=== PATIENT | male | born 1945 | race Caucasian/White ===

== ENCOUNTER → 2019-02-07 07:47 | Outpatient (CLI) | payer OTHER, SELFPAY ==
[2019-02-07 10:04] LABS: Prostate Specific Antigen 1.42 ng/mL (0.10-4.00)
== END ==
PROVIDERS: PCP Family Medicine; Visit Provider Specialist
DX: N40.1 Benign prostatic hyperplasia with lower urinary tract symptoms (principal)
CPT/HCPCS: 36415; 84153

== ENCOUNTER → 2019-03-16 10:26 | Outpatient (CLI) | payer MEDICARE, SELFPAY | PROVIDERS: PCP Family Medicine; Visit Provider Orthopaedic Surgery | DX: M75.52 Bursitis of left shoulder (principal); Z53.9 Procedure and treatment not carried out, unspecified reason ==

== ENCOUNTER → 2019-03-29 12:24 | Outpatient (CLI) | payer OTHER, MEDICARE, SELFPAY ==
--- NOTE | 2019-03-29 | DI.MRI.S_ITS ---
PROCEDURE: MR SHOULDER LT WO CON INDICATIONS: Bursitis of left shoulder TECHNIQUE: Noncontrast oblique coronal T2 fast spin echo with fat saturation, oblique sagittal T1 spin echo and T2 fast spin echo with fat saturation, axial T1 spin echo and T2 fast spin echo with fat saturation through the shoulder. COMPARISON: None. FINDINGS: Image quality: Excellent. Rotator cuff: There is full-thickness rupture involving anterior to mid fibers of the distal supraspinatus at its insertion on humeral head with 1.3 cm medial retraction of torn tendon fibers and fluid filled gap measures 1.3 cm in AP dimension. Tendinosis and low to moderate grade articular surface partial thickness tear involving the posterior fibers of distal supraspinatus and distal infraspinatus are seen extending to the musculotendinous junction. Most anterior fibers of distal supraspinatus also shows tendinosis and low-grade articular surface partial-thickness tear. Sagittal images demonstrate moderate supraspinatus muscle atrophy. Bones and bursae: No bone marrow contusions or fractures. There is moderate cromioclavicular joint osteoarthritis. No fracture or dislocation. Mild to moderate glenohumeral joint osteoarthritis is seen. Small to moderate amount of subacromial subdeltoid bursal fluid and glenohumeral joint fluid is seen. Capsule and soft tissues: In the absence of intra-articular contrast, the labrum and glenohumeral ligaments appear intact. Tendinosis and low to moderate grade partial-thickness involving proximal intra-articular portion of the head biceps tendon near humeral head is seen. The rotator interval appears normal, without fibrosis. The coracohumeral ligament is normal in thickness. IMPRESSION: 1. Full-thickness rupture involving anterior to mid fibers of distal supraspinatus at its insertion the humeral head with 1.3 cm medial retraction of torn tendon fibers. Tendinosis and moderate grade articular surface partial thickness tear involving most anterior fibers of distal supraspinatus, posterior fibers of distal supraspinatus, and infraspinatus. Distal subscapularis tendinosis. Moderate supraspinatus muscle atrophy. 2. Mild to moderate acromioclavicular joint and glenohumeral joint osteoarthritis. 3. No gross focal labral tear. 4. Tendinosis and partial-thickness tear involving proximal intra-articular portion of the lateral head of biceps tendon near humeral head. Dictated by: Guevara Rubio M.D. on 03/29/2019 at 13:15 Approved by: Guevara Rubio M.D. on 03/29/2019 at 13:28
== END ==
PROVIDERS: PCP Family Medicine; Visit Provider Orthopaedic Surgery
DX: M75.52 Bursitis of left shoulder (principal); M75.122 Complete rotator cuff tear or rupture of left shoulder, not specified as traumatic; S46.112A Strain of muscle, fascia and tendon of long head of biceps, left arm, initial encounter; M19.012 Primary osteoarthritis, left shoulder
CPT/HCPCS: 73221

== ENCOUNTER → 2019-05-09 12:19 | Outpatient (CLI) | payer OTHER, SELFPAY ==
[2019-05-09 13:27] LABS: Add Manual Diff / Slide Review NO; Basophils Absolute Auto 0 /uL (0-100); Basophils Percent Auto 0.4 % (0-2); Eosinophils Absolute Auto 100 /uL (0-450); Eosinophils Percent Auto 1.8 % (2-4); Hematocrit 45.8 % (41-53); Hemoglobin 15.5 g/dL (13.5-17.5); Lymphocytes Absolute Auto 1100 /uL (1100-4500); Lymphocytes Percent Auto 19.2 % (25-40); Mean Corpuscular HGB Conc 33.8 % (30-36); Mean Corpuscular Hemoglobin 33.2 PG (26-34); Mean Corpuscular Volume 98.2 fL (80-100); Monocytes Absolute Auto 600 /uL (0-900); Monocytes Percent Auto 10.5 % (3-14); Neutrophils Absolute Auto 4000 /uL (1500-7000); Neutrophils Percent Auto 68.1 % (50-75); Platelet Count 254 X10^3/uL (150-400); Red Blood Cell Count 4.67 X10^6/uL (4.5-5.9); Red Cell Distribution Width 14.1 % (11.6-14.8); White Blood Cell Count 5.9 X10^3/uL (4.5-11.0)
[2019-05-09 13:49] LABS: Blood Urea Nitrogen 25 mg/dL (9-20); Calcium 9.4 mg/dL (8.4-10.2); Carbon Dioxide 32 mmol/L (22-32); Chloride 101 mmol/L (98-107); Cholesterol 200 mg/dL (140-199); Estimated Glomerular Filt Rate > 60.0 mL/min (>60); Glucose 107 mg/dL (80-110); HDL Cholesterol 60 mg/dL (40-60); HEMOLYSIS < 15 (0-50); LDL Cholesterol Calculated 125 mg/dL (<100); Potassium 5.3 mmol/L (3.4-5.1); Sodium 139 mmol/L (137-145); Triglycerides 76 mg/dL (35-150)
== END ==
PROVIDERS: Family Provider Family Medicine; PCP Family Medicine; Visit Provider Internal Medicine Cardiovascular Disease
DX: I48.3 Typical atrial flutter (principal); Z00.00 Encounter for general adult medical examination without abnormal findings
CPT/HCPCS: 36415; 80048; 80061; 85025

== ENCOUNTER → 2019-06-13 07:37 | Outpatient (CLI) | payer OTHER, BC, SELFPAY ==
--- NOTE | 2019-06-13 | DI.NM.S_ITS ---
PROCEDURE: NM KEARA PERF SPECT REST & STR Rest and exercise myocardial perfusion SPECT with gated imaging and ejection fraction RADIOPHARMACEUTICAL: 27.3 mCi Tc-99m sestamibi IV at rest and 26.7 mCi Tc-99m sestamibi IV at peak exercise. A two day-protocol was performed. INDICATIONS: Typical atrial flutter TECHNIQUE: Radiopharmaceutical was injected at peak stress test, and also at rest. SPECT images were obtained. SPECT myocardial perfusion images were displayed in short axis, horizontal long axis, and vertical long axis views. Gated images were reviewed using Villij software. COMPARISON: None. CARDIAC STRESS: A standard Wojciech treadmill exercise tolerance test was performed by the patient under the supervision of an attending staff. The patient exercised for 2 minutes and 43 seconds reaching 4.6 METs; functional aerobic impairment (PREMA) is +50% on sedentary scale. Hemodynamic data: There is normal blood pressure and heart rate response to exercise stress. Patient achieved 94% of maximum predicted heart rate at peak exercise. Symptoms: Patient denied chest pain during exercise. EKG: Resting ECG shows sinus rhythm. No diagnostic EKG changes of ischemia with exercise. Frequent PVCs during recovery. FINDINGS: Raw data: There is good myocardial labeling by radiotracer. No significant motion artifacts. [id number] ratio is 0.36 (normal is less than 0.38 for sestamibi tracer, and less than 0.50 for thallium tracer). Left ventricle function: Gated images demonstrate normal left ventricle wall thickening. No segmental wall motion abnormality. No transient ischemic dilation; TID is 0.9 (normal less than 1.3). The left ventricle resting end-diastolic volume is 156 mL. Left ventricle stress ejection fraction is 69%; normal values are above 45%. Myocardial perfusion: There is a moderately severely fixed inferior wall defect extending to the apex that essentially resolves with prone imaging suggesting diaphragmatic attentuation. No ischemia no infarction. IMPRESSION: Low risk, normal treadmill nuclear stress test from ischemia standpoint. 1) No perfusion evidence of ischemia or infarction. There is a moderately severely fixed inferior wall defect extending to the apex that essentially resolves with prone imaging suggesting diaphragmatic attentuation. 2) Mildly increased left ventricular size (EDV 156cc) with normal wall motion and normal sysotlic function (EF post stress 69%. 3) No ECG evidence of ischemia. 4) Frequent PVCs during recovery. 5) No angina during the study. 6) Severely reduced exercise tolerance (4.6 METs, PREMA +50% on sedentary scale). Target heart rate achieved. Appropriate BP response to exercise. 7) No prior nuclear stress test available for comparison. Dictated by: Mathew More MD on 06/14/2019 at 12:42 Approved by: Mathew More MD on 06/14/2019 at 12:47
--- NOTE | 2019-06-13 09:15 | PM.TREADMILL ---
Cardiac Stress Test Report Referral & Results Date Patient Seen: 06/13/19 Requesting provider: Mathew More Indication: Atrial flutter Rest ECG: Unremarkable Procedure Note: Today following both written and verbal informed consent the patient was exercised according to a standard Wojciech protocol patient went for a total of 2 minutes 43 seconds achieving a maximum heart rate of 136 maximum systolic blood pressure of 182. This is approximately 4.6 METS. Exercise was terminated at this point because of severe dyspnea. Patient was also given Cardiolite through a previously started Hep-Lock IV by the diagnostic imaging staff approximately 1 minute prior to the cessation of exercise. There are no ST-T segment changes identified Normal heart rate and blood pressure response although quickly hypertensive but quickly returned to normal in recovery Occasional PVC including very brief runs of ventricular bigeminy in recovery Functional aerobic impairment rates 50% on the sedentary scale Impression: Severely limited exercise capacity No evidence of ischemia Dyspnea out of proportion to exertion otherwise although patient clearly is obese with significant deconditioning present Please see perfusion imaging report as well Please note: Actual ECG tracings can be found in the PACS system.
== END ==
PROVIDERS: Family Provider Family Medicine; PCP Family Medicine; Visit Provider Internal Medicine Cardiovascular Disease
DX: I48.3 Typical atrial flutter (principal)
CPT/HCPCS: 78452; 93016; 93017; 93018; A9502

== ENCOUNTER → 2020-10-24 11:45 | Outpatient (CLI) | payer OTHER, SELFPAY ==
[2020-10-24 12:21] LABS: Add Manual Diff / Slide Review NO; Basophils Absolute Auto 0 /uL (0-100); Basophils Percent Auto 0.5 % (0-2); Eosinophils Absolute Auto 300 /uL (0-450); Eosinophils Percent Auto 4.1 % (2-4); Hematocrit 45.7 % (41-53); Hemoglobin 15.6 g/dL (13.5-17.5); Lymphocytes Absolute Auto 1600 /uL (1100-4500); Lymphocytes Percent Auto 25.6 % (25-40); Mean Corpuscular HGB Conc 34.1 % (30-36); Mean Corpuscular Hemoglobin 33.1 PG (26-34); Mean Corpuscular Volume 97.1 fL (80-100); Monocytes Absolute Auto 700 /uL (0-900); Monocytes Percent Auto 10.9 % (3-14); Neutrophils Absolute Auto 3600 /uL (1500-7000); Neutrophils Percent Auto 58.9 % (50-75); Platelet Count 246 X10^3/uL (150-400); Red Cell Distribution Width 13.6 % (11.6-14.8); White Blood Cell Count 6.2 X10^3/uL (4.5-11.0)
[2020-10-24 13:00] LABS: BUN Creatinine Ratio 19.4 (6-22); Blood Urea Nitrogen 19 mg/dL (9-20); Calcium 8.9 mg/dL (8.4-10.2); Carbon Dioxide 33 mmol/L (22-32); Chloride 102 mmol/L (98-107); Cholesterol 193 mg/dL (140-199); Estimated Glomerular Filt Rate > 60.0 mL/min (>60); Glucose 106 mg/dL (80-110); HDL Cholesterol 39 mg/dL (40-60); HEMOLYSIS < 15 (0-50); LDL Cholesterol Calculated 114 mg/dL (<100); Potassium 4.6 mmol/L (3.4-5.1); Sodium 139 mmol/L (137-145); Triglycerides 201 mg/dL (35-150)
== END ==
PROVIDERS: Family Provider Family Medicine; PCP Family Medicine; Referring Provider Internal Medicine Cardiovascular Disease; Visit Provider Internal Medicine Cardiovascular Disease
DX: E78.5 Hyperlipidemia, unspecified (principal); I48.0 Paroxysmal atrial fibrillation
CPT/HCPCS: 36415; 80048; 80061; 85025

== ENCOUNTER 2022-02-09 11:51 | Emergency (ER) | payer OTHER, MEDICARE, SELFPAY ==
[2022-02-09 12:00] VITALS: BP 192/99; PULSE 80; RESP 16; TEMP 37; O2SAT 98; BMI 38.7
--- NOTE | 2022-02-09 14:15 | ED_ITS ---
HPI - Back Pain/Injury General Chief Complaint: Back Pain/Injury Stated Complaint: Lower back pain [id number] Time Seen by Provider: 02/09/22 14:15 History of Present Illness HPI Narrative: Patient is a 76-year-old male with history of hyperlipidemia atrial fibrillation on Eliquis, osteoarthritis presenting today with left sided lower lumbar pain ongoing for the last 2 weeks. He denies any specific injury or event. It is pinpoint. It is worse when he 1st stands up and sits down. It is nonradiating. It does not go down his legs. He goes to the chiropractor he says it helped initially but then started hurting again. He denies any changes in bowel or bladder habits. He has been taking Tylenol for pain which is no longer helping. He has tried heat and ice also not helping. Related Data Home Medications Medication Instructions Recorded Confirmed Fish Oil 1,000 mg PO QDAY #0 05/21/11 10/03/18 amiodarone 200 mg tablet 200 mg PO DAILY 12/25/20 12/25/20 apixaban 5 mg tablet (Eliquis) 5 mg PO BID 12/25/20 12/25/20 atorvastatin 10 mg tablet 10 mg PO DAILY 12/25/20 12/25/20 metoprolol succinate 100 mg 100 mg PO DAILY 12/25/20 12/25/20 tablet,extended release 24 hr trazodone 50 mg tablet 50 mg PO BEDTIME PRN tab 12/25/20 12/25/20 Previous Rx's Medication Instructions Recorded omeprazole 20 mg capsule,delayed 20 mg PO QDAY #90 cap 06/03/17 release albuterol sulfate 90 mcg/actuation 1 inh INHALATION Q4-6H PRN #18 gram 10/03/18 aerosol inhaler cyclobenzaprine 5 mg tablet 5 mg PO TID PRN #10 tab 02/09/22 hydrocodone 5 mg-acetaminophen 325 1 tab PO Q6H PRN #10 tab 02/09/22 mg tablet Allergies Allergy/AdvReac Type Severity Reaction Status Date / Time No Known Drug Allergies Allergy Unverified 02/09/22 12:02 Review of Systems Review of Systems Narrative: GENERAL: Denies chills, fatigue, malaise, fever, sweats, travel HEENT: Denies sinus pain, ear pain, sore throat, difficulty swallowing, neck pain RESPIRATORY: Denies dyspnea, cough, wheezing, hemoptysis, sputum. CARDIOVASCULAR: Denies chest pain, palpitations, orthopnea, edema GASTROINTESTINAL: Denies nausea, vomiting, abdominal pain, diarrhea, constipation, melena. : Denies dysuria, frequency, incontinence, hematuria, urinary retention, flank pain. MUSCULOSKELETAL: See HPI SKIN: No rash, no erythema, no pruritus NEUROLOGIC: Denies weakness, dizziness, headache, numbness, change in speech, confusion PSYCHIATRIC: No concerning psychosocial issues. 12 point review of systems is negative except for those stated above and HPI Patient History Social History Smoking Status: Never smoker Smoking Status: Never smoker alcohol intake frequency: 0-2 drinks per day Substance Use Type: does not use Exam Initial Vital Signs Initial Vital Signs: Vital Signs Temperature 98.6 F 02/09/22 12:00 Pulse Rate 80 02/09/22 12:00 Respiratory Rate 16 02/09/22 12:00 Blood Pressure 192/99 H 02/09/22 12:00 Pulse Oximetry 98 02/09/22 12:00 GENERAL: Alert well-appearing 76-year-old male sitting in chair appears comfortable CARDIOVASCULAR: peripheral pulses in tact, cap refill <2 sec RESPIRATORY: No respiratory distress, speaks in full sentences without difficulty BACK: No midline tenderness pinpoint tenderness in the left lumbar area. Pain is reproducible with palpation. EXTREMITIES: Normal range of motion, no clubbing or edema. Neurovascularly intact NEUROLOGICAL: Cranial nerves II through XII grossly intact. Normal gait and speech. Sensation in lower extremities equal and intact. SKIN: Warm, dry, no petechiae, no rashes or lesions. Course Vital Signs Vital signs: Vital Signs - 8 hr 02/09/22 12:00 02/09/22 14:39 Temperature 98.6 F Pulse Rate 80 66 Respiratory Rate 16 19 Blood Pressure 192/99 H 149/80 H Pulse Oximetry 98 97 MDM - Back Pain/Injury MDM Narrative Medical decision making narrative: At this time no indication for imaging, however may require imaging if symptoms worsen. He is hypertensive however pain is reproducible with palpation it is pinpoint it is nonradiating in the for the last 2 weeks. This is unlikely a dissection. Blood pressure is also improved with time in the emergency department. Discharge Plan Departure Patient Disposition: Home Clinical Impression: Low back pain Instructions: DI for Low Back Pain Activity Restrictions/Additional Instructions: *You have been diagnosed with low back pain *What to do: At this time I do recommend light stretching and heating pad. You may need physical therapy as well. I recommend massage if possible. *Continue to take medications as directed--> SENT TO [facility] [place] 1 tablet every 6 hours if needed for severe pain Flexeril 5 mg every 8 hours if needed for muscle spasm *Follow up with your primary care provider in 2-3 days or call [phone] *Return to ER if you should have increasing pain, leg weakness, chest pain, loss of urine or stool or any new, worsening or concerning symptoms CONTROLLED SUBSTANCE DISCHARGE (Narcotoic/benzodiazepine/Flexeril/Phenergan) 1. You have been prescribed narcotic medications, it does have acetaminophen/Tylenol/paracetamol in it, DO NOT TAKE MORE THAN 4,00mg in 24 hours of Tylenol. TRAMADOL DOES NOT CONTAIN TYLENOL 2. Please understand that we cannot provide further refills of narcotics, benzodiazepines or controlled substances through the ED and her pain management will need to be through your provider. 3. While on these medications you cannot drive or operate heavy machinery. 4. You cannot sign legal documents or perform any duties such as this. 5. As long as you're taking opiate pain medications he should also be taking a stool softener such as Colace, Dulcolax, MiraLAX or prune juice, to help avoid constipation. Prescriptions: New hydrocodone-acetaminophen 5-325 mg tablet 1 tab PO Q6H PRN (Reason: pain) Qty: 10 0RF cyclobenzaprine 5 mg tablet 5 mg PO TID PRN (Reason: muscle spasm) Qty: 10 0RF No Action albuterol sulfate 90 mcg/actuation HFA aerosol inhaler 1 inh INHALATION Q4-6H PRN (Reason: shortness of breath) Qty: 18 0RF Fish Oil 1,000 mg PO QDAY Qty: 0 0RF omeprazole 20 MG capsule,delayed release(DR/EC) 20 mg PO QDAY Qty: 90 0RF metoprolol succinate 100 mg tablet extended release 24 hr 100 mg PO DAILY 0RF amiodarone 200 mg tablet 200 mg PO DAILY 0RF Eliquis 5 mg tablet 5 mg PO BID 0RF atorvastatin 10 mg tablet 10 mg PO DAILY 0RF trazodone 50 mg tablet 50 mg PO BEDTIME [id number] Referrals: Brayan Truong MD [Primary Care Provider] -
[2022-02-09 14:39] VITALS: BP 149/80; PULSE 66; RESP 19; O2SAT 97
== END 2022-02-09 14:42 | disposition home or self-care (01) ==
PROVIDERS: Emergency Provider Emergency Medicine; Family Provider Family Medicine; PCP Family Medicine
DX: M54.50 Low back pain, unspecified (principal)
CPT/HCPCS: 99281

== ENCOUNTER → 2022-07-28 14:32 | Outpatient (CLI) | payer MEDICARE, SELFPAY ==
[2022-07-28 16:41] LABS: Add Manual Diff / Slide Review NO; Basophils Absolute Auto 0 /uL (0-100); Basophils Percent Auto 0.7 % (0-2); Eosinophils Absolute Auto 200 /uL (0-450); Eosinophils Percent Auto 3.6 % (2-4); Hematocrit 45.1 % (41-53); Hemoglobin 15.3 g/dL (13.5-17.5); Lymphocytes Absolute Auto 1200 /uL (1100-4500); Lymphocytes Percent Auto 24.2 % (25-40); Mean Corpuscular HGB Conc 33.8 % (30-36); Mean Corpuscular Hemoglobin 33.4 PG (26-34); Mean Corpuscular Volume 98.6 fL (80-100); Monocytes Absolute Auto 700 /uL (0-900); Monocytes Percent Auto 12.8 % (3-14); Neutrophils Absolute Auto 3000 /uL (1500-7000); Neutrophils Percent Auto 58.7 % (50-75); Platelet Count 241 X10^3/uL (150-400); Red Blood Cell Count 4.57 X10^6/uL (4.5-5.9); Red Cell Distribution Width 13.5 % (11.6-14.8); White Blood Cell Count 5.1 X10^3/uL (4.5-11.0)
[2022-07-28 17:02] LABS: BUN Creatinine Ratio 18.8 (6-22); Blood Urea Nitrogen 19 mg/dL (9-20); Calcium 8.6 mg/dL (8.4-10.2); Carbon Dioxide 27 mmol/L (22-32); Chloride 105 mmol/L (98-107); Estimated Glomerular Filt Rate > 60 mL/min (>60); Glucose 94 mg/dL (80-110); HEMOLYSIS 27 (0-50); Potassium 4.5 mmol/L (3.4-5.1); Sodium 140 mmol/L (137-145)
[2022-07-28 22:23] LABS: Free T4, Direct Thyroxine 1.09 ng/dL (0.78-2.19)
== END ==
PROVIDERS: Family Provider Family Medicine; PCP Family Medicine; Referring Provider Internal Medicine Cardiovascular Disease; Visit Provider Internal Medicine Cardiovascular Disease
DX: I48.0 Paroxysmal atrial fibrillation (principal)
CPT/HCPCS: 36415; 80048; 84439; 84443; 85025

== ENCOUNTER → 2022-11-19 14:43 | Outpatient (CLI) | payer MEDICARE, SELFPAY ==
[2022-11-19 15:07] LABS: Add Manual Diff / Slide Review NO; Basophils Absolute Auto 0 /uL (0-100); Basophils Percent Auto 0.7 % (0-2); Eosinophils Absolute Auto 400 /uL (0-450); Eosinophils Percent Auto 5.8 % (2-4); Hematocrit 44.6 % (41-53); Hemoglobin 15.3 g/dL (13.5-17.5); Lymphocytes Absolute Auto 1500 /uL (1100-4500); Lymphocytes Percent Auto 22.2 % (25-40); Mean Corpuscular HGB Conc 34.2 % (30-36); Mean Corpuscular Hemoglobin 32.9 PG (26-34); Mean Corpuscular Volume 96.3 fL (80-100); Monocytes Absolute Auto 600 /uL (0-900); Monocytes Percent Auto 9.4 % (3-14); Neutrophils Absolute Auto 4100 /uL (1500-7000); Neutrophils Percent Auto 61.9 % (50-75); Platelet Count 224 X10^3/uL (150-400); Red Blood Cell Count 4.64 X10^6/uL (4.5-5.9); Red Cell Distribution Width 13.8 % (11.6-14.8); White Blood Cell Count 6.6 X10^3/uL (4.5-11.0)
[2022-11-19 15:16] LABS: Hemoglobin A1C% w Est Avg Glu 5.5 % (4.0-6.0)
[2022-11-19 15:18] LABS: Appearance Urine UA CLEAR; Bilirubin Urine UA 1+ (NEGATIVE); Color Urine UA YELLOW; Glucose Urine UA NEGATIVE (Negative); Ketones Urine UA 1+ (NEGATIVE); Leukocyte Esterase Urine UA NEGATIVE (NEGATIVE); Nitrite Urine UA NEGATIVE (Negative); Occult Blood Urine UA NEGATIVE (Negative); Protein Urine UA NEGATIVE (Negative); Specific Gravity Urine UA >=1.030 (1.000-1.035)
[2022-11-19 15:37] LABS: Erythrocyte Sedimentation Rate 12 MM/HR (0-15)
[2022-11-19 15:50] LABS: Bacteria Urine None Seen; Culture Indicated Urine Cult Not Indicated; Ictotest Urine Negative (Negative); RBC Urine None Seen (0-5/HPF); Squamous Epithelial Cell Urine 1-5 /HPF (0-5/HPF); WBC Urine None Seen (0-5/HPF)
[2022-11-19 17:24] LABS: BUN Creatinine Ratio 18.9 (6-22); Blood Urea Nitrogen 21 mg/dL (9-20); Calcium 8.8 mg/dL (8.4-10.2); Carbon Dioxide 25 mmol/L (22-32); Chloride 104 mmol/L (98-107); Estimated Glomerular Filt Rate > 60 mL/min (>60); Glucose 105 mg/dL (80-110); HEMOLYSIS 17 (0-50); Potassium 4.8 mmol/L (3.4-5.1); Sodium 138 mmol/L (137-145)
[2022-11-19 20:21] LABS: C-Reactive Protein Quant 0.8 mg/dL (<1.0)
== END ==
PROVIDERS: Family Provider Family Medicine; PCP Family Medicine; Referring Provider Orthopaedic Surgery; Visit Provider Orthopaedic Surgery
DX: Z01.818 Encounter for other preprocedural examination (principal); R73.9 Hyperglycemia, unspecified; Z01.812 Encounter for preprocedural laboratory examination; N39.0 Urinary tract infection, site not specified
CPT/HCPCS: 36415; 80048; 81001; 83036; 85025; 85651; 86140; 93005

== ENCOUNTER → 2023-07-21 12:44 | Outpatient (CLI) | payer MEDICARE, SELFPAY ==
[2023-07-21 14:33] LABS: Add Manual Diff / Slide Review NO; Basophils Absolute Auto 0 /uL (0-100); Basophils Percent Auto 0.7 % (0-2); Eosinophils Absolute Auto 100 /uL (0-450); Eosinophils Percent Auto 4.1 % (2-4); Hematocrit 44.8 % (41-53); Hemoglobin 15.1 g/dL (13.5-17.5); Lymphocytes Absolute Auto 1200 /uL (1100-4500); Lymphocytes Percent Auto 32.2 % (25-40); Mean Corpuscular HGB Conc 33.7 % (30-36); Mean Corpuscular Hemoglobin 33.4 PG (26-34); Mean Corpuscular Volume 99.2 fL (80-100); Monocytes Absolute Auto 600 /uL (0-900); Monocytes Percent Auto 16.3 % (3-14); Neutrophils Absolute Auto 1700 /uL (1500-7000); Neutrophils Percent Auto 46.7 % (50-75); Platelet Count 218 X10^3/uL (150-400); Red Blood Cell Count 4.52 X10^6/uL (4.5-5.9); Red Cell Distribution Width 14.1 % (11.6-14.8); White Blood Cell Count 3.6 X10^3/uL (4.5-11.0)
[2023-07-21 14:49] LABS: BUN Creatinine Ratio 17.3 (6-22); Blood Urea Nitrogen 19 mg/dL (9-20); Calcium 9.1 mg/dL (8.4-10.2); Carbon Dioxide 31 mmol/L (22-32); Chloride 99 mmol/L (98-107); Cholesterol 161 mg/dL (140-199); Estimated Glomerular Filt Rate > 60 mL/min (>60); Glucose 98 mg/dL (80-110); HDL Cholesterol 35 mg/dL (40-60); HEMOLYSIS < 15 (0-50); LDL Cholesterol Calculated 102 mg/dL (<100); Potassium 4.4 mmol/L (3.4-5.1); Sodium 138 mmol/L (137-145); Triglycerides 119 mg/dL (35-150)
[2023-07-21 15:21] LABS: TSH w/ Reflex to FT4 2.73 uIU/mL (0.47-4.68)
== END ==
PROVIDERS: Family Provider Family Medicine; PCP Family Medicine; Referring Provider Internal Medicine Cardiovascular Disease; Visit Provider Internal Medicine Cardiovascular Disease
DX: E78.5 Hyperlipidemia, unspecified (principal); I48.0 Paroxysmal atrial fibrillation; Z79.899 Other long term (current) drug therapy
CPT/HCPCS: 36415; 80048; 80061; 84443; 85025

== ENCOUNTER → 2025-02-12 08:54 | Outpatient (CLI) | payer MEDICARE, SELFPAY ==
--- NOTE | 2025-02-12 08:57 | DI.CT.S_ITS ---
PROCEDURE: CT CHEST WO CON INDICATIONS: Dyspnea, h/o chemical exposure, eval for ILD TECHNIQUE: Noncontrast 5 mm thick sections acquired from the pulmonary apices to the posterior costophrenic angles. 1 mm lung window, 5 mm thick coronal and sagittal and 7 mm axial MIP reformats were then acquired. For radiation dose reduction, the following was used: automated exposure control, adjustment of mA and/or kV according to patient size. COMPARISON: [facility], CT, CT ANGIO CHEST, 02/24/2024, 9:26. FINDINGS: Image quality: Diagnostic. Lower Neck: No enlarged lymph nodes. Thyroid: No thyroid nodules which require sonographic follow up, per consensus guidelines. Axillae: No enlarged lymph nodes. Chest Wall: Unremarkable. Bones: Degenerative disc and endplate changes in the thoracic spine. Lungs and Pleura: Central and peripheral airways are normal without bronchial wall thickening or bronchiectasis. No nodule, mass, ground-glass opacity, or consolidation coarse calcification in the posterior left upper lobe. Scattered punctate calcifications elsewhere. No consolidations or ground-glass opacities. No reticulations. No pleural effusions. No pleural calcifications. Heart: Heart size is normal. No pericardial effusion. Mild coronary calcification. Thoracic Vessels: The aorta and pulmonary arteries demonstrate normal size. Mediastinum and Liyah: No enlarged lymph nodes. Esophagus: No wall thickening. No hiatal hernia. Upper Abdomen: Visualized upper abdomen solid organs and bowel loops appear normal. IMPRESSION: No pulmonary changes to suggest interstitial lung disease. Scattered calcified granulomas. Dictated by: Ledy Wallace M.D. on 02/12/2025 at 17:04 Approved by: Ledy Wallace M.D. on 02/12/2025 at 17:11
== END ==
PROVIDERS: Family Provider Family Medicine; PCP Family Medicine; Referring Provider Family Medicine; Visit Provider Internal Medicine Critical Care Medicine
DX: M51.34 Other intervertebral disc degeneration, thoracic region (principal); R06.09 Other forms of dyspnea; I25.10 Atherosclerotic heart disease of native coronary artery without angina pectoris
CPT/HCPCS: 71250

== ENCOUNTER → 2025-03-14 12:42 | Outpatient (CLI) | payer MEDICARE, SELFPAY | PROVIDERS: Family Provider Family Medicine; Referring Provider Internal Medicine Critical Care Medicine; Visit Provider Internal Medicine Critical Care Medicine | DX: R06.09 Other forms of dyspnea (principal); J98.8 Other specified respiratory disorders; R94.2 Abnormal results of pulmonary function studies | CPT/HCPCS: 94060; 94618; 94726; 94729 ==

== ENCOUNTER 2025-08-10 13:46 | Emergency (ER) | payer MEDICARE, SELFPAY ==
[2025-08-10 13:53] VITALS: BP 153/84; PULSE 86; RESP 17; TEMP 36.6; O2SAT 97; BMI 36.8
--- NOTE | 2025-08-10 14:18 | DI.CT.S_ITS ---
PROCEDURE: CT KIDNEY URETER BLADDER (KUB) INDICATIONS: Left flank pain TECHNIQUE: Axial sections were acquired from the lung bases to the pubic symphysis. Coronal and sagittal reformats were performed. For radiation dose reduction, the following was used: automated exposure control, adjustment of mA and/or kV according to patient size. COMPARISON: [facility], CT, CT ABDOMEN PELVIS WITH CONTRAST, 11/08/2023, 20:03. FINDINGS: Image quality: Diagnostic. Lower Chest: No significant findings. URINARY: Right Kidney: 3 mm nonobstructing calculus at the inferior pole of the right kidney. Stable right renal cyst. Right Ureter: No hydroureter. Left Kidney: Stable left renal cyst. No stones or hydronephrosis. Left Ureter: No hydroureter. Bladder: The right anterior bladder extends anterior right inguinal hernia. Bladder is nondistended. No bladder calculi. ABDOMEN: Liver: No contour-deforming solid mass. Gallbladder: No radiopaque gallstones or wall thickening. Biliary ducts: No biliary dilation. Pancreas: No ductal dilation. Spleen: Size is within normal limits. Adrenal Glands: No adrenal nodules. Stomach and Bowel: Multiple diverticula are seen in the colon without signs of acute diverticulitis. Small bowel loops and stomach are unremarkable. Peritoneum: No abnormal intraperitoneal fluid. No free air. Ventral Wall: Tiny fat containing periumbilical hernia. Abdominal Nodes: No enlarged retroperitoneal or mesenteric lymph nodes. Vessels: Aorta and inferior vena cava are normal in size. PELVIS: Pelvic Organs: Unremarkable. Pelvic Nodes: Unremarkable. Miscellaneous: Moderate bilateral inguinal hernias, containing fat on the left and containing fat and a portion of the bladder on the right. Bones: Right total hip arthroplasty. Multilevel degenerative changes in the included spine. IMPRESSION: 1. Nonobstructing 3 mm calculus at the inferior pole the right kidney. No obstructing calculus or hydronephrosis. 2. Colonic diverticulosis without signs of acute diverticulitis. 3. Right inguinal hernia contains a portion of the anterior bladder. Fat containing left inguinal hernia. Approved by: Cesar Welch M.D. on 08/10/2025 at 14:55
--- NOTE | 2025-08-10 14:18 | ED.BACK ---
HPI - Back Pain/Injury General Chief Complaint: Back Pain/Injury Stated Complaint: Low back pn 3days this week, diverticulitis? Time Seen by Provider: 08/10/25 14:07 Source: patient History of Present Illness HPI Narrative: Patient here for left mid back pain for the past 3 or 4 days. No known injury. Patient states pain is constant. But it does wax and wane. Worse with movement and palpation. No rash. No urinary complaints. No hematuria. Patient denies any fall or injury or recent illness. No strenuous back muscle use. No prior history of back surgery. No bowel or bladder incontinence. No saddle paresthesia no numbness tingling or weakness to the legs. Pain does not radiate. No abdominal pain no chest pain. Related Data Home Medications ?Medication ?Instructions ?Recorded ?Confirmed apixaban 5 mg tablet (Eliquis) 5 mg PO BID 12/25/20 06/23/25 atorvastatin 10 mg tablet 10 mg PO DAILY 12/25/20 06/23/25 metoprolol succinate 100 mg 100 mg PO DAILY 12/25/20 06/23/25 tablet,extended release 24 hr trazodone 50 mg tablet 50 mg PO BEDTIME PRN 12/25/20 06/23/25 Previous Rx's ?Medication ?Instructions ?Recorded omeprazole 20 mg capsule,delayed 20 mg PO QDAY #90 caps 06/03/17 release albuterol sulfate 90 mcg/actuation 1 inh inhalation Q4-6H PRN 10/03/18 aerosol inhaler shortness of breath #18 grams fluticasone 250 mcg-salmeterol 50 1 inh inhalation BID #60 ea 03/30/25 mcg/dose blistr powdr for inhalation (Advair Diskus) baclofen 20 mg tablet 20 mg PO TID PRN pain (scale score 08/10/25 4-6) #20 tabs Allergies Allergy/AdvReac Type Severity Reaction Status Date / Time No Known Drug Allergies Allergy Verified 08/10/25 13:54 Review of Systems Review of Systems Narrative: GENERAL: Negative chills, fatigue, malaise, fever, sweats. HEENT: Negative sinus pain, ear pain, sore throat RESPIRATORY: Negative dyspnea, cough CARDIOVASCULAR: Negative chest pain, palpitations GASTROINTESTINAL: Negative vomiting, nausea, abdominal pain : Negative dysuria, frequency, hematuria MUSCULOSKELETAL: Positive back/muscle or bony pain SKIN: Negative rash, skin lesions NEUROLOGIC: Negative weakness, numbness ROS Unobtainable: All systems reviewed & are unremarkable except as noted in HPI and below Patient History Social History Smoking Status: Former smoker Smoking Status: Former smoker alcohol intake frequency: 0-2 drinks per day Exam Narrative Exam Narrative: GENERAL: in no distress, not toxic not dyspneic HEAD: Normocephalic. EYES: Pupils equal round ENT: Mucous membranes moist. NECK: Trachea midline. CARDIOVASCULAR: Regular rate and rhythm RESPIRATORY: Clear to auscultation. Breath sounds equal bilaterally. No wheezes, rales, or rhonchi. GASTROINTESTINAL: Abdomen soft, non-tender BACK: There is reproducible left mid back muscle tenderness and spasm. Increased pain when attempts to rotate his trunk to the left compared to the right. He is not able to rotate has fully to the left due to pain compared to the right. No rash no vesicles. No back pain with straight leg raises. EXTREMITIES: No gross deformities. NEURO: AOx4. Clear speech. Steady self gait no foot drop strong bilateral patellar reflexes and ankle flexion-extension SKIN: Warm and dry PSYCH: Not anxious, is cooperative Initial Vital Signs Initial Vital Signs: Vital Signs Temperature 98 F 08/10/25 13:53 Pulse Rate 86 08/10/25 13:53 Respiratory Rate 17 08/10/25 13:53 Blood Pressure 153/84 H 08/10/25 13:53 Pulse Oximetry 97 08/10/25 13:53 Oxygen Delivery Method Room Air 08/10/25 13:53 Course Orders Ordered: ED Orders 08/10/25 14:00 Urine Culture Stat Urine Microscopic Stat 08/10/25 14:15 Complete Blood Count AUTO DIFF Stat Comprehensive Metabolic Panel Stat Lipase Stat 08/10/25 14:18 CT kidney ureter bladder (KUB) Stat 08/10/25 17:18 BMP [Basic Metabolic Panel] Stat Discontinued Medications Sodium Chloride (Normal Saline 0.9%) 1,000 mls @ 1,000 mls/hr IV BOLUS ONE Stop: 08/10/25 16:16 Last Infusion: 08/10/25 17:00 Dose: Infused Documented By: Admin: 08/10/25 15:59 Dose: 1,000 mls/hr Documented By: DAIJA Acetaminophen (Ofirmev) 1,000 mg in 100 mls @ 400 mls/hr IV NOW ONE Stop: 08/10/25 15:31 Last Infusion: 08/10/25 16:26 Dose: Infused Documented By: Admin: 08/10/25 15:59 Dose: 400 mls/hr Documented By: DAIJA Ondansetron HCl (Ondansetron 4 Mg/2 Ml Inj) 4 mg IV NOW PRN PRN Reason: Nausea And Vomiting Ondansetron HCl (Ondansetron 4 Mg Odt) 4 mg PO NOW PRN PRN Reason: Nausea And Vomiting Vital Signs Vital signs: Vital Signs - 8 hr 08/10/25 13:53 08/10/25 17:06 08/10/25 17:30 Temperature 98 F Pulse Rate 86 72 75 Respiratory Rate 17 Blood Pressure 153/84 H Pulse Oximetry 97 95 97 Oxygen Delivery Method Room Air 08/10/25 17:51 Temperature Pulse Rate Respiratory Rate Blood Pressure 133/80 Pulse Oximetry Oxygen Delivery Method MDM - Back Pain/Injury Lab Data 08/10/25 14:15 08/10/25 17:18 Labs: Lab Results 08/10/25 08/10/25 08/10/25 Range/Units 14:00 14:15 17:18 WBC 8.6 (4.5-11.0) X10^3/uL RBC 4.85 (4.5-5.9) X10^6/uL Hgb 16.0 (13.5-17.5) g/dL Hct 47.0 (41-53) % MCV 96.9 (80-100) fL MCH 33.0 (26-34) PG MCHC 34.1 (30-36) % RDW 13.9 (11.6-14.8) % Plt Count 257 (150-400) X10^3/uL Neut % (Auto) 68.5 (50-75) % Lymph % (Auto) 19.7 L (25-40) % [place] % (Auto) 9.1 (3-14) % Eos % (Auto) 2.1 (2-4) % Baso % (Auto) 0.6 (0-2) % Neut # (Auto) 5900 (4296-5126) /uL Lymph # (Auto) 1700 (9216-1854) /uL [place] # (Auto) 800 (0-900) /uL Eos # (Auto) 200 (0-450) /uL Baso # (Auto) 0 (0-100) /uL Platelet Estimate Decreased on smear Plt Morphology Comment Sb RBC Morphology Normal morphology Sodium 135 L 135 L (137-145) mmol/L Potassium 5.7 H 4.6 (3.4-5.1) mmol/L Chloride 99 101 (98-107) mmol/L Carbon Dioxide 25 24 (22-32) mmol/L BUN 17 17 (9-20) mg/dL Creatinine 0.91 0.93 (0.66-1.25) mg/dL Estimated GFR > 60 > 60 (>60) mL/min BUN/Creatinine Ratio 18.7 18.3 (6-22) Glucose 104 H 95 (70-99) mg/dL Calcium 9.3 8.6 (8.4-10.2) mg/dL Total Bilirubin 2.5 H (0.2-1.3) mg/dL AST 62 H (17-59) IU/L ALT 32 (<50) IU/L Alkaline Phosphatase 49 (38-126) U/L Total Protein 8.9 H (6.3-8.2) g/dL Albumin 5.0 (3.5-5.0) g/dL Globulin 3.9 (1.7-4.1) g/dL Albumin/Globulin Ratio 1.3 (1.0-2.8) Lipase 380 H (23-300) U/L Urine RBC 5-10/hpf H (0-5/HPF) Urine WBC 1-5/hpf (0-5/HPF) Ur Squamous Epith Cells 0-1 /hpf (0-5/HPF) Calcium Oxalate Crystal Few H Urine Bacteria Few (2-10) H (None) Ur Culture Indicated? Specimen cultured Vol Urine Centrifuged 10ml (spun) Urine Dip Bedside Urine Glucose Negative Bedside Urine Bilirubin - Negative Bedside Urine Ketone +/- 5 Urine Specific [place] 1.025 Bedside Urine Occult Blood ++ Bedside Urine pH 5.5 Bedside Urine Protein - Negative Bedside Urine Urobilinogen - Negative Bedside Urine Nitrite - Negative Bedside Urine Leukocytes + 70 Esterase MDM Narrative Medical decision making narrative: Patient here for left mid back pain for the past 3 or 4 days. No known injury. Patient states pain is constant. But it does wax and wane. Worse with movement and palpation. No rash. No urinary complaints. No hematuria. Patient denies any fall or injury or recent illness. No strenuous back muscle use. No prior history of back surgery. No bowel or bladder incontinence. No saddle paresthesia no numbness tingling or weakness to the legs. Pain does not radiate. No abdominal pain no chest pain. MDM After history and exam, CBC CMP urinalysis if he KUB. Patient did drive here. He took oxycodone earlier today without relief. Differential considered: Includes but not limited to kidney stone pyelonephritis pneumonia shingles muscle spasm Medical records reviewed: No recent visit for this complaint Lab Test results independently reviewed as above. Pertinent findings: WBC 8.6 hemoglobin 16 sodium 135 potassium 5.7 BUN 17 creatinine 0.91 GFR greater than 60 Repeat chemistries after 1 L normal saline potassium 4.6 Imaging studies independently reviewed: CT KUB no acute finding Consultations: None indicated this time. Re-evaluations: 3:18 p.m.. Reviewed results with patient. Potassium slightly high. IV fluids will be provided and IV Tylenol for pain. Patient is driving. Patient can not have Toradol due to Eliquis. 5:50 p.m.. Updated patient results potassium has improved with IV fluids. Pain is controlled. Return precautions reviewed. He desires discharge home. Prescription for baclofen provided for help relieve muscle spasm. He agrees with this treatment plan. Discussion: Appropriate for discharge home. Exam is reassuring. Return precautions reviewed. Potassium did improve with IV fluids. Prescription for baclofen appropriate for back muscle spasms. Return precautions reviewed and he desires discharge home. Pain is controlled at this time. Diagnosis: Thoracic back pain Discharge Plan Departure Patient Disposition: Home Clinical Impression: Acute hyperkalemia Thoracic back pain Qualifiers: Chronicity: acute Back pain laterality: left Qualified Code(s): M54.6 - Pain in thoracic spine Instructions: DI for Hyperkalemia, DI for Back Spasm Activity Restrictions/Additional Instructions: Your exam and laboratory studies are reassuring. Please see family doctor for re-evaluation. Please call provided primary care provider phone number to obtain family doctor, . Prescription for muscle relaxer has been sent to your pharmacy to continue. Return if worse if any questions or concerns. Your potassium was slightly high today. It was corrected by use of IV fluids. Please do see your family doctor for re-evaluation of your blood work in a week. Prescriptions: New baclofen 20 mg tablet 20 mg PO TID PRN (Reason: pain (scale score 4-6)) Qty: 20 0RF No Action albuterol sulfate 90 mcg/actuation HFA aerosol inhaler 1 inh INHALATION Q4-6H PRN (Reason: shortness of breath) Qty: 18 0RF omeprazole 20 MG capsule,delayed release(DR/EC) 20 mg PO QDAY Qty: 90 0RF fluticasone propion-salmeterol [Advair Diskus] 250-50 mcg/dose blister with device 1 inh inhalation BID Qty: 60 11RF metoprolol succinate 100 mg tablet extended release 24 hr 100 mg PO DAILY Eliquis 5 mg tablet 5 mg PO BID atorvastatin 10 mg tablet 10 mg PO DAILY trazodone 50 mg tablet 50 mg PO BEDTIME PRN Referrals: Miscellaneous,Doctor, MD [Primary Care Provider, Medical] Stand Alone Forms: Patient Portal/API
[2025-08-10 14:40] LABS: Add Manual Diff / Slide Review SLIDE REVIEW; Hematocrit 47.0 % (41-53); Hemoglobin 16.0 g/dL (13.5-17.5); Lymphocytes Absolute Auto 1700 /uL (1100-4500); Mean Corpuscular HGB Conc 34.1 % (30-36); Mean Corpuscular Hemoglobin 33.0 PG (26-34); Mean Corpuscular Volume 96.9 fL (80-100); Platelet Count 257 X10^3/uL (150-400)
[2025-08-10 14:45] LABS: Alanine Aminotransferase 32 IU/L (<50); Albumin 5.0 g/dL (3.5-5.0); Albumin Globulin Ratio 1.3 (1.0-2.8); Alkaline Phosphatase 49 U/L (38-126); Blood Urea Nitrogen 17 mg/dL (9-20); Calcium 9.3 mg/dL (8.4-10.2); Carbon Dioxide 25 mmol/L (22-32); Chloride 99 mmol/L (98-107); Estimated Glomerular Filt Rate > 60 mL/min (>60); Globulin 3.9 g/dL (1.7-4.1); Glucose 104 mg/dL (70-99); Lipase 380 U/L (23-300); Sodium 135 mmol/L (137-145); Total Protein 8.9 g/dL (6.3-8.2)
[2025-08-10 14:46] LABS: HEMOLYSIS 269 (0-50); Potassium 5.7 mmol/L (3.4-5.1)
[2025-08-10 15:16] LABS: Culture Indicated Urine Specimen Cultured
[2025-08-10 15:21] LABS: RBC Morphology Normal Morphology
[2025-08-10] MEDS: SODIUM CHLORIDE 0.9% 1,000 ML 1000 ML IV (15:59)
[2025-08-10] MEDS: ACETAMINOPHEN IV 1,000 MG/100 ML VIAL 400 MG IV (15:59)
[2025-08-10 17:06] VITALS: PULSE 72; O2SAT 95
[2025-08-10 17:30] VITALS: PULSE 75; O2SAT 97
[2025-08-10 17:35] LABS: Blood Urea Nitrogen 17 mg/dL (9-20); Calcium 8.6 mg/dL (8.4-10.2); Carbon Dioxide 24 mmol/L (22-32); Chloride 101 mmol/L (98-107); Estimated Glomerular Filt Rate > 60 mL/min (>60); Glucose 95 mg/dL (70-99); HEMOLYSIS < 15 (0-50); Potassium 4.6 mmol/L (3.4-5.1); Sodium 135 mmol/L (137-145)
[2025-08-10 17:51] VITALS: BP 133/80
== END 2025-08-10 17:52 | disposition home or self-care (01) ==
PROVIDERS: Emergency Provider Emergency Medicine; Family Provider Family Medicine
DX: M54.6 Pain in thoracic spine (principal); E87.5 Hyperkalemia
CPT/HCPCS: 36415; 74176; 80048; 80053; 81003; 81015; 83690; 85025; 87086; 96365; 99283; 99284; J0131; J7030

== ENCOUNTER 2025-08-26 13:40 | Emergency (ER) | payer MEDICARE, SELFPAY ==
[2025-08-26 13:43] VITALS: BP 141/81; PULSE 78; RESP 15; TEMP 36.6; O2SAT 94; BMI 36.6
--- NOTE | 2025-08-26 13:56 | DI.CT.S_ITS ---
PROCEDURE: CT ANGIO ABD/PEL GI BLEED
[2025-08-26 14:08] LABS: Add Manual Diff / Slide Review NO; Hematocrit 45.7 % (41-53); Hemoglobin 15.5 g/dL (13.5-17.5); Lymphocytes Absolute Auto 1100 /uL (1100-4500); Mean Corpuscular HGB Conc 33.9 % (30-36); Mean Corpuscular Hemoglobin 32.6 PG (26-34); Mean Corpuscular Volume 96.3 fL (80-100); Platelet Count 219 X10^3/uL (150-400)
[2025-08-26 14:16] LABS: INR 1.3 (0.9-1.3); Prothrombin Time 14.3 SECONDS (9.4-12.5)
[2025-08-26] MEDS: LACTATED RINGERS 1,000 ML 1000 ML IV (14:16)
[2025-08-26 14:18] LABS: PTT Partial Thromboplastin Tim 37 SECONDS (25.1-36.5)
[2025-08-26 14:20] LABS: Alanine Aminotransferase 21 IU/L (<50); Albumin 4.4 g/dL (3.5-5.0); Albumin Globulin Ratio 1.4 (1.0-2.8); Alkaline Phosphatase 72 U/L (38-126); Blood Urea Nitrogen 18 mg/dL (9-20); Calcium 9.0 mg/dL (8.4-10.2); Carbon Dioxide 25 mmol/L (22-32); Chloride 105 mmol/L (98-107); Estimated Glomerular Filt Rate > 60 mL/min (>60); Globulin 3.1 g/dL (1.7-4.1); Glucose 106 mg/dL (70-99); HEMOLYSIS < 15 (0-50); Potassium 4.5 mmol/L (3.4-5.1); Sodium 139 mmol/L (137-145); Total Protein 7.5 g/dL (6.3-8.2)
[2025-08-26 15:12] LABS: Appearance Urine UA CLEAR; Bilirubin Urine UA NEGATIVE (NEGATIVE); Color Urine UA YELLOW; Glucose Urine UA NEGATIVE (Negative); Ketones Urine UA 1+ (NEGATIVE); Leukocyte Esterase Urine UA NEGATIVE (NEGATIVE); Nitrite Urine UA NEGATIVE (Negative); Occult Blood Urine UA NEGATIVE (Negative); Protein Urine UA NEGATIVE (Negative); Specific Gravity Urine UA 1.025 (1.000-1.035); Urobilinogen Urine UA 0.2 E.U./dL (0.2); pH Urine UA 5.5 (4.5-8.0)
[2025-08-26 15:18] LABS: Culture Indicated Urine Cult Not Indicated
[2025-08-26 15:20] VITALS: BP 126/62; PULSE 79; RESP 18; O2SAT 94
--- NOTE | 2025-08-26 15:51 | ED_ITS ---
<Statement entered by Ponce Guillory, DO - 08/26/25 21:59>
--- NOTE | 2025-08-26 15:51 | ED.ABDPAIN ---
HPI - Abdominal Pain General Chief Complaint: Abdominal Pain Stated Complaint: ABD PAIN WK Time Seen by Provider: 08/26/25 13:49 Source: patient Mode of arrival: Ambulatory History of Present Illness HPI narrative: 80-year-old male with history of AFib on Eliquis here for blood in his stool and abdominal pain for 1 week. States that he is having lower abdominal crampy pain but no fevers or chills. He has been having blood in his stool which varies from bright red blood when he wipes to drops of bright red blood in the toilet bowl. He has also seen blood intermixed with stool although it is hard to tell whether it is a blood clot or blood in small chunks of stool. He has not had much of an appetite. No vomiting, no back pain, no urinary symptoms, no weakness or dizziness. He was seen here 2 weeks ago for back pain, and had a CT KUB that showed diverticulosis without diverticulitis. No history of diverticulitis that he is aware of. He is hydrating well p.o.. Related Data Home Medications ?Medication ?Instructions ?Recorded ?Confirmed apixaban 5 mg tablet (Eliquis) 5 mg PO BID 12/25/20 06/23/25 atorvastatin 10 mg tablet 10 mg PO DAILY 12/25/20 06/23/25 metoprolol succinate 100 mg 100 mg PO DAILY 12/25/20 06/23/25 tablet,extended release 24 hr trazodone 50 mg tablet 50 mg PO BEDTIME PRN 12/25/20 06/23/25 Previous Rx's ?Medication ?Instructions ?Recorded omeprazole 20 mg capsule,delayed 20 mg PO QDAY #90 caps 06/03/17 release albuterol sulfate 90 mcg/actuation 1 inh inhalation Q4-6H PRN 10/03/18 aerosol inhaler shortness of breath #18 grams fluticasone 250 mcg-salmeterol 50 1 inh inhalation BID #60 ea 03/30/25 mcg/dose blistr powdr for inhalation (Advair Diskus) baclofen 20 mg tablet 20 mg PO TID PRN pain (scale score 08/10/25 4-6) #20 tabs ciprofloxacin HCl 500 mg tablet 500 mg PO BID 5 days #10 tabs 08/26/25 (Cipro) metronidazole 500 mg tablet 500 mg PO BID 5 days #10 tabs 08/26/25 Allergies Allergy/AdvReac Type Severity Reaction Status Date / Time No Known Drug Allergies Allergy Verified 08/26/25 13:43 Review of Systems Review of Systems ROS Unobtainable: All systems reviewed & are unremarkable except as noted in HPI and below Patient History Social History Smoking Status: Unknown if ever smoked Smoking Status: Unknown if ever smoked alcohol intake frequency: 0-2 drinks per day Exam Narrative Exam Narrative: GENERAL: [80] year old patient appears stated age. Well-developed patient, in no acute distress, but appears uncomfortable HEAD: Atraumatic. Normocephalic. EYES: Pupils equal round and reactive. Extraocular motions intact. No scleral icterus. No injection or drainage. ENT: Nose without bleeding, purulent drainage. Throat without erythema, tonsillar hypertrophy or exudate. Airway patent. NECK: Trachea midline. Non tender CARDIOVASCULAR: Regular rate and rhythm without murmurs, gallops, or rubs. RESPIRATORY: Clear to auscultation. Breath sounds equal bilaterally. No wheezes, rales, or rhonchi. GASTROINTESTINAL: Abdomen soft, nondistended, tenderness throughout the lower abdomen but no guarding or rebound. Able to move around without significant discomfort. EXTREMITIES: No edema or joint tenderness. BACK: Nontender without deformity or crepitus. No flank tenderness. NEURO: AOx3. SKIN: No rash or erythema of visible areas Initial Vital Signs Initial Vital Signs: Vital Signs Temperature 97.8 F 08/26/25 13:43 Pulse Rate 78 08/26/25 13:43 Respiratory Rate 15 08/26/25 13:43 Blood Pressure 141/81 H 08/26/25 13:43 Pulse Oximetry 94 08/26/25 13:43 Oxygen Delivery Method Room Air 08/26/25 13:43 Course Orders Ordered: ED Orders 08/26/25 13:55 Complete Blood Count AUTO DIFF Stat Comprehensive Metabolic Panel Stat PTT Partial Thromboplastin Ward Stat Prothrombin Time INR Stat Type and Screen Stat 08/26/25 13:56 CT angio Abd/Pel GI Bleed Stat 08/26/25 14:50 Urinalysis and Microscopic Stat Discontinued Medications Lactated Ringer's (Lactated Ringers) 1,000 mls @ 1,000 mls/hr IV BOLUS ONE Stop: 08/26/25 15:01 Last Infusion: 08/26/25 15:27 Dose: Infused Documented By: Admin: 08/26/25 14:16 Dose: 1,000 mls/hr Documented By: JULIANA Ondansetron HCl (Ondansetron 4 Mg/2 Ml Inj) 4 mg IV NOW PRN PRN Reason: Nausea And Vomiting Ondansetron HCl (Ondansetron 4 Mg Odt) 4 mg PO NOW PRN PRN Reason: Nausea And Vomiting Vital Signs Vital signs: Vital Signs - 8 hr 08/26/25 13:43 08/26/25 15:20 08/26/25 16:38 Temperature 97.8 F Pulse Rate 78 79 78 Respiratory Rate 15 18 18 Blood Pressure 141/81 H 126/62 133/68 Pulse Oximetry 94 94 95 Oxygen Delivery Method Room Air Room Air Room Air MDM - Abdominal Pain Lab Data 08/26/25 13:55 08/26/25 13:55 Labs: Lab Results 08/26/25 08/26/25 Range/Units 13:55 14:50 WBC 7.6 (4.5-11.0) X10^3/uL RBC 4.74 (4.5-5.9) X10^6/uL Hgb 15.5 (13.5-17.5) g/dL Hct 45.7 (41-53) % MCV 96.3 (80-100) fL MCH 32.6 (26-34) PG MCHC 33.9 (30-36) % RDW 14.3 (11.6-14.8) % Plt Count 219 (150-400) X10^3/uL Neut % (Auto) 68.9 (50-75) % Lymph % (Auto) 14.9 L (25-40) % [place] % (Auto) 11.9 (3-14) % Eos % (Auto) 3.8 (2-4) % Baso % (Auto) 0.5 (0-2) % Neut # (Auto) 5200 (9338-9579) /uL Lymph # (Auto) 1100 (4438-9068) /uL [place] # (Auto) 900 (0-900) /uL Eos # (Auto) 300 (0-450) /uL Baso # (Auto) 0 (0-100) /uL PT 14.3 H (9.4-12.5) SECONDS INR 1.3 (0.9-1.3) APTT 37 H (25.1-36.5) SECONDS Sodium 139 (137-145) mmol/L Potassium 4.5 (3.4-5.1) mmol/L Chloride 105 (98-107) mmol/L Carbon Dioxide 25 (22-32) mmol/L BUN 18 (9-20) mg/dL Creatinine 0.87 (0.66-1.25) mg/dL Estimated GFR > 60 (>60) mL/min BUN/Creatinine Ratio 20.7 (6-22) Glucose 106 H (70-99) mg/dL Calcium 9.0 (8.4-10.2) mg/dL Total Bilirubin 1.4 H (0.2-1.3) mg/dL AST 28 (17-59) IU/L ALT 21 (<50) IU/L Alkaline Phosphatase 72 (38-126) U/L Total Protein 7.5 (6.3-8.2) g/dL Albumin 4.4 (3.5-5.0) g/dL Globulin 3.1 (1.7-4.1) g/dL Albumin/Globulin Ratio 1.4 (1.0-2.8) Urine Color Yellow Urine Appearance Clear Urine pH 5.5 (4.5-8.0) Ur Specific [place] 1.025 (1.000-1.035) Urine Protein Negative (Negative) Urine Glucose (UA) Negative (Negative) g/dL Urine Ketones 1+ H (NEGATIVE) Urine Occult Blood Negative (Negative) Urine Nitrate Negative (Negative) Urine Bilirubin Negative (NEGATIVE) Urine Urobilinogen 0.2 (0.2) E.U./dL Ur Leukocyte Esterase Negative (NEGATIVE) Urine RBC 0-1/hpf (0-5/HPF) Urine WBC 0-1/hpf (0-5/HPF) Ur Squamous Epith Cells 0-1 /hpf (0-5/HPF) Urine Bacteria Occasional (0-1) (None) Ur Culture Indicated? Cult not indicated Vol Urine Centrifuged 10ml (spun) Blood Type O Positive Antibody Screen Negative Point of care testing: Point of Care Testing Stool Occult Blood Negative Imaging Data CT scan - abdomen/pelvis: Radiologist's Impression: [address] [address] [address] Scan Report Signed Patient: Oliver Macias MR#: [id number] : 1945 Acct:[id number] Age/Sex: 80 / M Date of Service: 08/26/25 Loc: ED Accession Number: [id number] Procedure: CT angio Abd/Pel GI Bleed Ordering Provider: Sabina Pollock PA-C PROCEDURE: CT ANGIO ABD/PEL GI BLEED INDICATIONS: GI bleed TECHNIQUE: After the administration of intravenous contrast, 2.5 mm sections acquired from the diaphragm to the iliac crests. 10 mm maximum intensity projection (MIP) coronal and sagittal reformats were then performed. For radiation dose reduction, the following was used: automated exposure control. COMPARISON: None. FINDINGS: Image quality: Diagnostic. Abdominal aorta: No aortic aneurysm or evidence of acute aortic syndrome. Mesenteric arteries: Patent without hemodynamically significant stenosis. Renal arteries: Patent with coarse atherosclerotic calcification at the origins causing less than 50% luminal narrowing. Lower chest: Unremarkable. ABDOMEN: Liver: No solid mass. Gallbladder: No radiopaque gallstones or wall thickening. Biliary ducts: No biliary dilation. Pancreas: No ductal dilation. Spleen: Size is within normal limits. Adrenal Glands: No adrenal nodules. Kidneys and Ureters: No hydronephrosis. No solid mass. No complex renal cystic lesion which requires follow up. Stomach and Bowel: Bowel is of normal caliber. Multiple sigmoid diverticula are shown with associated mesenteric inflammation in lymphadenopathy. There is no associated focal fluid collection or definite extraluminal gas. Peritoneum: No abnormal intraperitoneal fluid. No free air. Ventral Wall: No hernia. Abdominal Nodes: No retroperitoneal or mesenteric adenopathy by size criteria. Vessels: Aorta, as above. Normal IVC. PELVIS: Pelvic Organs: Unremarkable. Bladder: There is partial herniation of the bladder through the right inguinal canal. Pelvic Nodes: No enlarged lymph nodes except as above. Miscellaneous: No inguinal hernias are seen. Bones: No aggressive osseous abnormality. There is a fat containing left inguinal hernia. IMPRESSION: No active extravasation. Acute uncomplicated diverticulitis. Right inguinal hernia containing a large portion of the urinary bladder. Referral to urology is recommended if this has not previously been evaluated. Dictated by: Desi Carter M.D. on 08/26/2025 at 14:20 Approved by: Desi Carter M.D. on 08/26/2025 at 14:25 [facility] Narrative Medical decision making narrative: Multiple etiologies for patient's symptoms considered including, but not limited to: GI bleed, diverticulitis, pancreatitis, neoplasm, hemorrhoids Patient's vital signs are normal, he is in no acute distress, no signs of acute abdomen. His blood work includes a normal white blood cell count and normal H/H. Hemodynamically stable. Stool guaiac is negative although patient is visualizing bright red blood in his stool over the last week. Due to the blood in stool and abdominal pain imaging is warranted. Patient declines anything for pain at this time. Fluids given. CT reveals acute diverticulitis, uncomplicated. Discussed with Dr. Guillory and Dr. Ayala (Gen surg, who was already present on an ED) and they agree with outpatient antibiotics Cipro and Flagyl. Patient advised to follow up with his PCP and GI. If he experiences worsening of his bleeding or abdominal pain or is having fevers/chills or vomiting then he should return to the ED for further evaluation. Patient lives on [address] and currently does not have a PCP but we will be trying to arrange care with one. Patient has remained in no distress with normal vital signs and hemodynamically stable during the duration of his stay in the ED. Stable for discharge at this time. Findings and discharge diagnosis discussed with patient/family followed by verbalization of understanding Return precautions discussed with patient/family whom verbalize understanding of diagnosis and plan Discharge Plan Departure Patient Disposition: Home Clinical Impression: Diverticulitis Instructions: DI for Diverticulitis Activity Restrictions/Additional Instructions: Thank you for choosing us to care for you today. You were seen today for abdominal pain along with blood in your stool. Your CT scan shows that you have diverticulitis which is inflammation/infection in little pouches of your intestines. You will be on 2 antibiotics for the next 5 days. Please take all of your antibiotics even if you are feeling better. Please keep your diet light and bland and avoid seeds, nuts, popcorn, etc.. Please drink plenty of fluids. I have placed a referral for a GI specialist. Please also obtain a primary care physician as soon as possible and schedule an appointment with a specialist to follow up. If your symptoms suddenly worsen such as severe bleeding, dizziness/weakness, severe abdominal pain, fevers, or any other new or worsening symptoms please return to this ER. Prescriptions: New metronidazole 500 mg tablet 500 mg PO BID 5 Days Qty: 10 0RF ciprofloxacin HCl [Cipro] 500 mg tablet 500 mg PO BID 5 Days Qty: 10 0RF No Action albuterol sulfate 90 mcg/actuation HFA aerosol inhaler 1 inh INHALATION Q4-6H PRN (Reason: shortness of breath) Qty: 18 0RF omeprazole 20 MG capsule,delayed release(DR/EC) 20 mg PO QDAY Qty: 90 0RF baclofen 20 mg tablet 20 mg PO TID PRN (Reason: pain (scale score 4-6)) Qty: 20 0RF fluticasone propion-salmeterol [Advair Diskus] 250-50 mcg/dose blister with device 1 inh inhalation BID Qty: 60 11RF metoprolol succinate 100 mg tablet extended release 24 hr 100 mg PO DAILY Eliquis 5 mg tablet 5 mg PO BID atorvastatin 10 mg tablet 10 mg PO DAILY trazodone 50 mg tablet 50 mg PO BEDTIME PRN Referrals: [facility] [Provider Group] - 3-5 days Referral Note: diverticulitis, blood in stool Miscellaneous,Doctor, MD [Primary Care Provider, Medical] Stand Alone Forms: Patient Portal/API
[2025-08-26 16:38] VITALS: BP 133/68; PULSE 78; RESP 18; O2SAT 95
== END 2025-08-26 17:18 | disposition home or self-care (01) ==
PROVIDERS: Emergency Provider Physician Assistant; Family Provider Family Medicine
DX: K57.92 Diverticulitis of intestine, part unspecified, without perforation or abscess without bleeding (principal)
CPT/HCPCS: 36415; 74174; 80053; 81001; 82272; 85025; 85610; 85730; 86850; 86900; 86901; 96360; 99284; J7120; Q9967

== ENCOUNTER 2025-08-29 08:55 | Emergency (ER) | payer MEDICARE, SELFPAY ==
[2025-08-29] VITALS (15 sets, daily range): BP systolic 105–140; BP diastolic 63–76; PULSE 73–81; RESP 14–22; TEMP 36.3–36.8; O2SAT 95–98; BMI 39.0
[2025-08-29 09:43] LABS: Add Manual Diff / Slide Review NO; Hematocrit 43.5 % (41-53); Hemoglobin 14.8 g/dL (13.5-17.5); Lymphocytes Absolute Auto 1000 /uL (1100-4500); Mean Corpuscular HGB Conc 34.0 % (30-36); Mean Corpuscular Hemoglobin 32.8 PG (26-34); Mean Corpuscular Volume 96.4 fL (80-100); Platelet Count 225 X10^3/uL (150-400)
[2025-08-29 09:51] LABS: INR 1.3 (0.9-1.3); Prothrombin Time 15.1 SECONDS (9.4-12.5)
[2025-08-29 09:54] LABS: Alanine Aminotransferase 19 IU/L (<50); Albumin 4.2 g/dL (3.5-5.0); Albumin Globulin Ratio 1.3 (1.0-2.8); Alkaline Phosphatase 64 U/L (38-126); Blood Urea Nitrogen 18 mg/dL (9-20); Calcium 8.9 mg/dL (8.4-10.2); Carbon Dioxide 25 mmol/L (22-32); Chloride 103 mmol/L (98-107); Estimated Glomerular Filt Rate > 60 mL/min (>60); Globulin 3.2 g/dL (1.7-4.1); Glucose 101 mg/dL (70-99); HEMOLYSIS 38 (0-50); PTT Partial Thromboplastin Tim 36 SECONDS (25.1-36.5); Potassium 4.1 mmol/L (3.4-5.1); Sodium 139 mmol/L (137-145); Total Protein 7.4 g/dL (6.3-8.2)
[2025-08-29 11:54] LABS: Culture Indicated Urine Cult Not Indicated
[2025-08-29 14:06] LABS: Clostridium difficile toxin AB Not Detected (Not Detect); Enteroaggregative E.coli Not Detected (Not Detect); Enteropathogenic E.coli Not Detected (Not Detect); Enterotoxigenic E.coli It/st Not Detected (Not Detect); Plesiomonsa shigelloides Not Detected (Not Detect); Shiga-like toxin-prod E.coli Not Detected (Not Detect)
--- NOTE | 2025-08-29 16:47 | ED_ITS ---
HPI - GI Bleed General Chief complaint: GI Bleed Stated complaint: Internal bleeding , not feeling better Time Seen by Provider: 08/29/25 09:36 Source: patient Mode of arrival: Ambulatory History of Present Illness HPI Narrative: 80-year-old male who is anticoagulated for atrial fibrillation presenting with hematochezia and diarrhea. He was seen here on the 26 of August with the abdominal pain and some bloody stool diagnosed with diverticulitis, that workup was reviewed, labs were reassuring and he had a CT angio of the head did not show any evidence of acute bleeding but did show diverticulitis. He is started on metronidazole and Cipro. He returns today concerned about continued bloody diarrhea. He is having episodes of diarrhea less than 5 times a day. He has some urgency when this occurs, his abdominal pain is improved he is not having fevers nausea or vomiting. Patient states he is taking Eliquis for history of atrial fibrillation status post ablation. He lives on [address] [facility] so is dependent for [place] transport and is concerned about his continued GI bleeding. Related Data Home Medications ?Medication ?Instructions ?Recorded ?Confirmed apixaban 5 mg tablet (Eliquis) 5 mg PO BID 12/25/20 atorvastatin 10 mg tablet 10 mg PO DAILY 12/25/2003/12 metoprolol succinate 100 mg 100 mg PO DAILY 12/25/20 0 06/23/25 tablet,extended release 24 hr trazodone 50 mg tablet 50 mg PO BEDTIME PRN 1 06/23/25 Previous Rx's ?Medication ?Instructions ?Recorded omeprazole 20 mg capsule,delayed 20 mg PO QDAY #90 cap s 06/03/17 release albuterol sulfate 90 mcg/actuation 1 inh inhalation Q4 -6H PRN 10/03/18 aerosol inhaler shortness of breath #18 gram s fluticasone 250 mcg-salmeterol 50 1 inh inhalation BID #60 ea 03/30/25 mcg/dose blistr powdr for inhalation (Advair Diskus) baclofen 20 mg tablet 20 mg PO TID PRN pain (scale score 08/10/25 4-6) #20 tabs ciprofloxacin HCl 500 mg tablet 500 mg PO BID 5 days # 10 tabs 08/26/25 (Cipro) metronidazole 500 mg tablet 500 mg PO BID 5 days #10 t abs 08/26/25 Allergies Allergy/AdvReac Type Severity Reaction Status Date / Time No Known Drug Allergies Allergy Verified 08/29/25 09:12 Patient History Social History Smoking Status: Unknown if ever smoked Smoking Status: Unknown if ever smoked alcohol intake frequency: 0-2 drinks per day Exam Narrative Exam Narrative: Alert and in no distress ambulatory vital signs reviewed and reassuring. Lungs are clear Heart sounds are normal regular rhythm and rate Abdomen is soft and nontender. External exam of the anal area shows no hemorrhoids. He produced a small amount of grossly bloody clot in the emergency department. Initial Vital Signs Initial Vital Signs: Vital Signs Temperature 97.4 F L 08/29/25 09:13 Pulse Rate 79 08/29/25 09:13 Respiratory Rate 14 08/29/25 09:13 Blood Pressure 137/76 08/29/25 09:13 Pulse Oximetry 98 08/29/25 09:13 Oxygen Delivery Method Room Air 08/29/25 09:13 Course Orders Ordered: ED Orders 08/29/25 09:30 Complete Blood Count AUTO DIFF Stat Comprehensive Metabolic Panel Stat PTT Partial Thromboplastin Ward Stat Prothrombin Time INR Stat Type and Screen Stat 08/29/25 09:46 Stool Culture Stat 08/29/25 11:12 GI Panel (Film Array) Stat 08/29/25 11:19 Urine Microscopic Stat Discontinued Medications Ondansetron HCl (Ondansetron 4 Mg/2 Ml Inj) 4 mg IV NOW PRN PRN Reason: Nausea And Vomiting Ondansetron HCl (Ondansetron 4 Mg Odt) 4 mg PO NOW PRN PRN Reason: Nausea And Vomiting Vital Signs Vital signs: Vital Signs - 8 hr 08/29/25 09:13 08/29/25 10:27 08/29/25 10:27 Temperature 97.4 F L Pulse Rate 79 80 Respiratory Rate 14 Blood Pressure 137/76 140/67 Pulse Oximetry 98 97 Oxygen Delivery Method Room Air 08/29/25 10:30 08/29/25 10:33 08/29/25 10:34 Temperature 98.3 F Pulse Rate 79 Respiratory Rate 20 Blood Pressure 140/67 129/71 Pulse Oximetry 98 97 Oxygen Delivery Method Room Air 08/29/25 10:34 08/29/25 11:00 08/29/25 11:00 Temperature Pulse Rate 78 76 Respiratory Rate Blood Pressure 105/66 Pulse Oximetry 98 96 Oxygen Delivery Method 08/29/25 11:30 08/29/25 12:00 08/29/25 12:29 Temperature Pulse Rate 77 81 Respiratory Rate Blood Pressure 137/75 Pulse Oximetry 97 97 Oxygen Delivery Method 08/29/25 12:29 08/29/25 12:30 08/29/25 12:30 Temperature Pulse Rate 81 81 Respiratory Rate 19 20 Blood Pressure 126/63 Pulse Oximetry 98 98 Oxygen Delivery Method 08/29/25 13:00 08/29/25 13:00 08/29/25 13:30 Temperature Pulse Rate 76 79 Respiratory Rate 14 19 Blood Pressure 126/64 Pulse Oximetry 95 97 Oxygen Delivery Method 08/29/25 13:30 08/29/25 14:00 08/29/25 14:00 Temperature Pulse Rate 73 Respiratory Rate 22 Blood Pressure 126/70 118/69 Pulse Oximetry 96 Oxygen Delivery Method 08/29/25 14:30 08/29/25 14:47 Temperature 98.0 F Pulse Rate 76 74 Respiratory Rate 14 16 Blood Pressure 139/74 Pulse Oximetry 98 97 Oxygen Delivery Method Room Air MDM - GI Bleed Lab Data Lab results narrative: Hemoglobin and platelets are normal. Chemistries are reassuring, stool PCR is negative for infectious cause of diarrhea 08/29/25 09:30 08/29/25 09:30 Labs: Lab Results 08/29/25 08/29/25 08/29/25 Range/Units 09:30 11:12 11:19 WBC 6.1 (4.5-11.0) X10^3/uL RBC 4.51 (4.5-5.9) X10^6/uL Hgb 14.8 (13.5-17.5) g/dL Hct 43.5 (41-53) % MCV 96.4 (80-100) fL MCH 32.8 (26-34) PG MCHC 34.0 (30-36) % RDW 13.8 (11.6-14.8) % Plt Count 225 (150-400) X10^3/uL Neut % (Auto) 62.5 (50-75) % Lymph % (Auto) 16.2 L (25-40) % [place] % (Auto) 15.0 H (3-14) % Eos % (Auto) 5.6 H (2-4) % Baso % (Auto) 0.7 (0-2) % Neut # (Auto) 3800 (7403-8783) /uL Lymph # (Auto) 1000 L (3572-9166) /uL [place] # (Auto) 900 (0-900) /uL Eos # (Auto) 300 (0-450) /uL Baso # (Auto) 0 (0-100) /uL PT 15.1 H (9.4-12.5) SECONDS INR 1.3 (0.9-1.3) APTT 36 (25.1-36.5) SECONDS Sodium 139 (137-145) mmol/L Potassium 4.1 (3.4-5.1) mmol/L Chloride 103 (98-107) mmol/L Carbon Dioxide 25 (22-32) mmol/L BUN 18 (9-20) mg/dL Creatinine 0.86 (0.66-1.25) mg/dL Estimated GFR > 60 (>60) mL/min BUN/Creatinine Ratio 20.9 (6-22) Glucose 101 H (70-99) mg/dL Calcium 8.9 (8.4-10.2) mg/dL Total Bilirubin 1.2 (0.2-1.3) mg/dL AST 32 (17-59) IU/L ALT 19 (<50) IU/L Alkaline Phosphatase 64 (38-126) U/L Total Protein 7.4 (6.3-8.2) g/dL Albumin 4.2 (3.5-5.0) g/dL Globulin 3.2 (1.7-4.1) g/dL Albumin/Globulin Ratio 1.3 (1.0-2.8) Urine RBC 0-1/hpf (0-5/HPF) Urine WBC 0-1/hpf (0-5/HPF) Ur Squamous Epith Cells 0-1 /hpf (0-5/HPF) Urine Bacteria None seen (None) Hyaline Casts 0-1/lpf (None) Ur Culture Indicated? Cult not indicated Vol Urine Centrifuged 10ml (spun) Stl C. cayetanensis PCR Not detected (Not Detect) Stool Rotavirus (PCR) Detected (Not Detect) Stool Adenovirus (PCR) Not detected (Not Detect) Stool Astrovirus (PCR) Not detected (Not Detect) Stool Cryptosporidium PCR Not detected (Not Detect) Stl E.coli Shiga Tox PCR Not detected (Not Detect) St Sh/Enteroin Ecoli PCR Not detected (Not Detect) Stl Enterotoxigenic E PCR Not detected (Not Detect) Stool EPEC (PCR) Not detected (Not Detect) Stl E. histolytica PCR Not detected (Not Detect) Stool Giardia Lamblia PCR Not detected (Not Detect) Stool Sapovirus (PCR) Not detected (Not Detect) Stl P. shigelloides PCR Not detected (Not Detect) St Y.enterocolitica PCR Not detected (Not Detect) Stool Vibrio (PCR) Not detected (Not Detect) Stl Vibrio cholerae PCR Not detected (Not Detect) Stl Enteroaggr Ecoli PCR Not detected (Not Detect) Stl Norovirus GI/GII PCR Not detected (Not Detect) Campylobacter (PCR) Not detected (Not Detect) C. difficile Tox (PCR) Not detected (Not Detect) Salmonella (PCR) Not detected (Not Detect) Blood Type O Positive Antibody Screen Negative Point of Care Testing Stool Occult Blood Positive Urine Dip Bedside Urine Glucose Negative Bedside Urine Bilirubin - Negative Bedside Urine Ketone +/- 5 Urine Specific [place] 1.030 Bedside Urine Occult Blood - Negative Bedside Urine pH 5.5 Bedside Urine Protein +/- 15 Bedside Urine Urobilinogen - Negative Bedside Urine Nitrite - Negative Bedside Urine Leukocytes - Negative Esterase MDM Narrative Medical decision making narrative: 80-year-old man with bloody diarrhea and currently being treated for diverticulitis with Cipro and metronidazole. Workup is reassuring he appears nontoxic hemoglobin is stable he is not hypotensive, I do not think he has severe GI bleeding at present requiring hospitalization or further intervention. I recommended he continue his antibiotics. Given his overall well appearance I think an abscess or perforation is unlikely and I did not repeat imaging. I did recommend that he hold his Eliquis hopefully this will help the bleeding resolve as this is a significant concern of his. He is in sinus rhythm today. I reviewed his monitoring specialist to confirm this. I considered but do not suspect perianal abscess or internal hemorrhoid. He was referred to General surgery for colonoscopy Discharge Plan Departure Patient Disposition: Home Clinical Impression: Hematochezia, Anticoagulated Diarrhea Qualifiers: Diarrhea type: presumed infectious Qualified Code(s): R19.7 - Diarrhea, unspecified Activity Restrictions/Additional Instructions: Emergency department evaluation today is reassuring. You are definitely putting out some blood in your stool but it is a relatively small amount that your blood counts and vital signs are stable. I do recommend that you hold your Eliquis until this bleeding resolves. I also recommend that you contact your sign board erector regarding the possible need to continue or discontinue Eliquis given your previous ablation. You are presently in normal sinus rhythm. If you are having heavier bleeding, feeling faint having chest pain fevers increasing abdominal pain or other acute symptoms return to the emergency department. Continue the previously prescribed antibiotics. Follow up soon with your primary care provider, I have made a referral to surgery for colonoscopy Prescriptions: No Action albuterol sulfate 90 mcg/actuation HFA aerosol inhaler 1 inh INHALATION Q4-6H PRN (Reason: shortness of breath) Qty: 18 0RF omeprazole 20 MG capsule,delayed release(DR/EC) 20 mg PO QDAY Qty: 90 0RF baclofen 20 mg tablet 20 mg PO TID PRN (Reason: pain (scale score 4-6)) Qty: 20 0RF metronidazole 500 mg tablet 500 mg PO BID 5 Days Qty: 10 0RF ciprofloxacin HCl [Cipro] 500 mg tablet 500 mg PO BID 5 Days Qty: 10 0RF fluticasone propion-salmeterol [Advair Diskus] 250-50 mcg/dose blister with device 1 inh inhalation BID Qty: 60 11RF metoprolol succinate 100 mg tablet extended release 24 hr 100 mg PO DAILY Eliquis 5 mg tablet 5 mg PO BID atorvastatin 10 mg tablet 10 mg PO DAILY trazodone 50 mg tablet 50 mg PO BEDTIME PRN Referrals: Nayan Arriaga MD [Physician, General Surgery] Referral Note: colonoscopy for blood in stool Stand Alone Forms: Patient Portal/API
[2025-08-31 13:10] LABS: Salmonella/Shigella Screen Final report (.)
[2025-08-31 15:12] LABS: E coli Shiga Toxin EIA Negative (Negative)
== END 2025-08-29 14:48 | disposition home or self-care (01) ==
PROVIDERS: Emergency Provider Emergency Medicine; Family Provider Family Medicine
DX: K92.1 Melena (principal); R19.7 Diarrhea, unspecified; Z79.01 Long term (current) use of anticoagulants
CPT/HCPCS: 36415; 80053; 81003; 81015; 82272; 85025; 85610; 85730; 86850; 86900; 86901; 87045; 87507; 99283; 99284